=== PATIENT | male | born 1950 | race Caucasian/White ===

== ENCOUNTER → 2017-03-25 | Outpatient (CLI) | payer MEDICARE, BC ==
[~2017-03-25] MED LIST: REGADENOSON 0.4 MG/5 ML DISP.SYRIN. IV ONE; SULFUR HEXAFLUORIDE MICROSPHR 25 MG VIAL. IVP ONE
--- NOTE | 2017-03-25 10:41 | PCVCIMAG ---
APPROVED REPORT Study performed: 03/25/2017 08:11:53 EXAM: Comprehensive 2D, Doppler, and color-flow Echocardiogram Patient Location: Echo lab Status: routine BSA: 2.57 HR: 60 bpmBP: 118/78 mmHg Rhythm: NSR Other Information Study Quality: Technically Limited Indications Dyspnea Abnormal EKG. Pre op shoulder clearance. Echo Enhancing Agent Agent(s) / Amount(s) Used: Lumason cc 2D Dimensions IVSd: 7.18 (7-11mm) LVDd: 56.74 mm PWd: 8.19 (7-11mm)Ascending Ao: 38.51 (22-36mm) LVDs: 45.05 (25-40mm) Left Atrium: 33.18 (27-40mm) Aortic Root: 34.20 mm Rob's LVEF: 41.49 % Volumes Left Atrial Volume (Systole) Single Plane 4CH: 18.48 mL Aortic Valve AoV Peak Tom.: 1.71 m/s AO Peak Gr.: 11.70 mmHg Mitral Valve E/A Ratio: 0.9 MV Decel. Time: 403.75 ms MV E Max Tom.: 0.69 m/s MV A Tom.: 0.77 m/s Pulmonary Valve PV Peak Gr.: 2.16 mmHg Left Ventricle The left ventricle is normal size. There is normal LV segmental wall motion. There is normal left ventricular wall thickness. Left ventricular systolic function is normal. The left ventricular ejection fraction is within the normal range. LVEF is 50-55%. This study is not technically sufficient to allow evaluation of the LV diastolic function. Right Ventricle The right ventricle is normal size. The right ventricular systolic function is normal. Atria The left atrium size is normal. The right atrium size is normal. Aortic Valve The aortic valve is normal in structure. No aortic regurgitation is present. There is no aortic valvular stenosis. Mitral Valve The mitral valve is normal in structure. There is no mitral valve regurgitation noted. No evidence of mitral valve stenosis. Tricuspid Valve The tricuspid valve is normal in structure. There is no tricuspid valve regurgitation noted. Pulmonic Valve The pulmonary valve is normal in structure. There is no pulmonic valvular regurgitation. Great Vessels The aortic root is normal in size. IVC is normal in size and collapses with >50% inspiration Pericardium There is no pericardial effusion. <Conclusion> The left ventricle is normal size. LVEF is 50-55%. The aortic valve is normal in structure. The mitral valve is normal in structure. The tricuspid valve is normal in structure. The pulmonary valve is normal in structure. There is no pericardial effusion.
--- NOTE | 2017-03-27 11:48 | PCVCIMAG ---
APPROVED REPORT Exam: Nuclear Stress Test Indication: Abn EKG, Pre Op Clearance Patient Location: Out-Patient Stress Nurse: Bethany Alberts RN, Grace Beltran RN [place] Tech:Eusebio Grissom NMTCB Ht: 6 ft 1 in Wt: 305 lbs BSA: 2.57 m2 HR: 61 bpm BP: 174/81 mmHg BMI: 40.2 Rhythm: SR, RBBB Medical History Medical History: Age, Hyperlipidemia, HTN, DM Non Insulin Medications: Lisinopril, ASA, Simvastatin, HCTZ, Allergies: NKDA Pretest Chest Pain Characteristics: No chest pain NM EXAM: Myocardial Perfusion REST/STRESS Imaging Protocol: Rest Tc-99m/Stress Tc-99m 1 day Resting Data Rest SPECT myocardial perfusion imaging was performed in supine position 45 minutes following the intravenous injection of 15.2 mCi of Tc-99m Sestamibi. Time of rest injection: 0845 Date: 03/25/2017 Administration Route: IV Pharmacologic Stress Pharmacologic stress test was performed by injecting Regadenoson 0.4 mg IV push followed by the intravenous injection of 42.6 mCi of Tc-99m Sestamibi. Time of stress injection: 1015 Date: 03/25/2017 Administration Route: IV Administration Site: Left Hand Gated Stress SPECT was performed 45 minutes after stress injection. The images were gated to evaluate regional wall motion and calculate left ventricular ejection fraction. Study Data Post stress, the left ventricular ejection was 62%.. SSS: 0 SRS: 0 SDS: 0 TID = 1.08. Perfusion There is a large area of moderately reduced uptake in the basal and mid segment of the inferior wall which is seen on the stress images as well as the resting images. This area thickens and moves normally and is most consistent with attenuation artifact. Nuclear Conclusion 1. LOW RISK SCAN Interpreted by: Lucien Araujo MD Electronically Approved: 03/27/2017 11:47:05 Stress Test Details Stress Test: Pharmacologic stress testing performed using 0.4 mg of regadenoson per 5 mL given IV over 10 seconds. Reason for pharmacologic stress test: Shoulder Issues. HR Resting HR: 61 bpmMax Heart Rate (APMHR): 153 bpm Max HR Achieved: 70 bpmTarget HR (85% APMHR): 130 bpm % of APMHR: 45 Recovery HR: 67 bpm BP Resting BP: 174/81 mmHg Max BP: 173/81 mmHg ECG Resting ECG: Sinus Rhythm, RBBB Stress ECG: Sinus Rhythm, RBBB Recovery ECG: Sinus Rhythm, RBBB Clinical Reason for Termination: Completed protocol Stress Symptoms: None Symptoms resolved with caffeine. Stress ECG Conclusion 1. ADEQUATE RESPONSE TO IV LEXISCAN 2. INADEQUATE HEART RATE FOR ECG DIAGNOSIS <Conclusion> 1. ADEQUATE RESPONSE TO IV LEXISCAN 2. INADEQUATE HEART RATE FOR ECG DIAGNOSIS
== END | disposition home or self-care (01) ==
LOC: PCVCIMAG 08:04
PROVIDERS: ATTEND Internal Medicine
DX: R94.31 Abnormal electrocardiogram [ECG] [EKG] (principal); R06.00 Dyspnea, unspecified; E11.9 Type 2 diabetes mellitus without complications; I10 Essential (primary) hypertension; E78.5 Hyperlipidemia, unspecified
CPT/HCPCS: 78452; 93017; 93306; A9500; J2785; Q9950